=== PATIENT | female | born 1955 | race Caucasian/White ===

== ENCOUNTER 2016-12-30 02:17 | Inpatient (IN) ==
--- NOTE | 2016-12-28 12:32 | EKG Report ---
Test Performed on : 12/28/2016 10:59:51 AM Test Reason : PAT Blood Pressure : / mmHG Vent. Rate : 056 BPM Atrial Rate : 056 BPM P-R Int : 152 ms QRS Dur : 092 ms QT Int : 472 ms P-R-T Axes : 060 033 041 degrees QTc Int : 455 ms Sinus bradycardia. Otherwise normal ECG No previous ECGs available Confirmed by Narcisa Painting MD ([id number]) on 12/29/2016 12:27:08 PM
[2016-12-28 12:33] LABS: BILIRUBIN URINE NEGATIVE (NEGATIVE); BLOOD URINE NEGATIVE (NEGATIVE); COLOR YELLOW; GLUCOSE URINE NEGATIVE (NEGATIVE); LEUKOCYTES URINE MODERATE (NEGATIVE); NITRITE URINE NEGATIVE (NEGATIVE); PROTEIN URINE TRACE mg/dL (NEGATIVE); SP GRAVITY URINE 1.029; TURBIDITY URINE CLEAR (CLEAR); URINE MICRO REVIEW NEEDED? NO; URINE SOURCE CLEAN CATCH; UROBILINOGEN URINE 3 mg/dL (NORMAL)
[2016-12-28 12:34] LABS: UR EPITHELIAL CELLS >10 /HPF (<10); URINE BACTERIA 1+ /HPF; URINE RBC <10 /HPF (<10); URINE WBC <10 /HPF (<10)
[2016-12-28 12:37] LABS: BASO% 1.1 % (0.0-0.8); EOS# 0.28 X1000 (0.0-0.7); EOS% 5.2 % (0.0-10.0); HEMATOCRIT 40.3 % (37.0-47.0); HEMOGLOBIN 13.5 g/dL (12.0-16.0); LYMPH# 1.74 X1000 (1.2-3.4); LYMPH% 32.3 % (20.5-51.1); MANUAL DIFF NEEDED? NO; MCH 31.6 PG (27-31); MCHC 33.5 g/dL (33-37); MCV 94.4 FL (81-99); MONO# 0.61 X1000 (0.11-0.59); MONO% 11.3 % (1.7-9.3); MPV 10.4 FL (7.4-10.4); NEUT% 50.1 % (42.2-75.2); PLT 230 X1000 (130-400); RBC 4.27 XMIL (4.2-5.4)
[2016-12-28 12:46] LABS: INR 1.04
[2016-12-28 13:02] LABS: AGAP 10; BUN 13 mg/dL (8-22); CALCIUM 8.9 mg/dL (8.8-10.2); CHLORIDE 102 mmol/L (98-107); COSMO 285; POTASSIUM 4.1 mmol/L (3.5-5.1); SODIUM 143 mmol/L (136-145); TCO2 31 mmol/L (25-35)
[2016-12-30] MEDS ORDERED: VANCOMYCIN 1 GM/NS 1 GM/250 ML IVPB ONE (05:34)
[2016-12-30] MEDS ORDERED: COLACE ONE (05:34)
[2016-12-30] MEDS ORDERED: REGLAN ONE (05:34)
[2016-12-30] MEDS ORDERED: CELEBREX ONE (05:34)
[2016-12-30] MEDS ORDERED: PEPCID ONE (05:34)
[2016-12-30] MEDS ORDERED: LYRICA ONE (05:34)
[2016-12-30] MEDS ORDERED: LR 1,000 ML ONE (05:35)
[2016-12-30] MEDS ORDERED: DIPRIVAN 1% 1,000 MG/100 ML BOTTLE ONE (06:21)
[2016-12-30] MEDS ORDERED: VERSED ONE (06:25)
[2016-12-30] MEDS ORDERED: FENTANYL ONE (06:26)
[2016-12-30] MEDS ORDERED: DURAMORPH ONE (06:38)
[2016-12-30] MEDS ORDERED: EXPAREL 1.3% ONE (06:39)
[2016-12-30] MEDS ORDERED: VANCOMYCIN ONE (06:39)
[2016-12-30] MEDS ORDERED: SENSORCAINE 0.25%/EPI 1:200,000 ONE (06:39)
[2016-12-30] MEDS ORDERED: TORADOL ONE (06:39)
[2016-12-30] MEDS ORDERED: NEOSPORIN G.U. IRRIGANT ONE (06:39)
[2016-12-30] MEDS ORDERED: CYKLOKAPRON 1,000 MG/NS 1,000 MG/100 ML IVPB ONE ×2 (06:39→06:40)
[2016-12-30] MEDS ORDERED: SODIUM CHLORIDE 0.9% ONE (06:39)
[2016-12-30] MEDS ORDERED: DECADRON ONE (07:38)
[2016-12-30] MEDS ORDERED: SODIUM CHLORIDE 0.9% 10 ML ONE (07:38)
[2016-12-30] MEDS ORDERED: OFIRMEV 1000 MG/ISOTONIC SOLN 1,000 MG/100 ML BOTTLE ONE (07:38)
[2016-12-30] MEDS ORDERED: ZOFRAN ONE (07:38)
[2016-12-30] MEDS ORDERED: NEO-SYNEPHRINE ONE (07:55)
[2016-12-30 08:00] LABS: URINE MICRO REVIEW NEEDED? NO; URINE SOURCE CATH
[2016-12-30 08:05] LABS: BILIRUBIN URINE NEGATIVE (NEGATIVE); BLOOD URINE NEGATIVE (NEGATIVE); COLOR YELLOW; GLUCOSE URINE NEGATIVE (NEGATIVE); LEUKOCYTES URINE NEGATIVE (NEGATIVE); NITRITE URINE NEGATIVE (NEGATIVE); PROTEIN URINE NEGATIVE (NEGATIVE); SP GRAVITY URINE 1.023; TURBIDITY URINE CLEAR (CLEAR); UROBILINOGEN URINE NORMAL (NORMAL)
[2016-12-30 08:07] LABS: UR EPITHELIAL CELLS <10 /HPF (<10); URINE BACTERIA NEGATIVE /HPF; URINE RBC <10 /HPF (<10); URINE WBC <10 /HPF (<10)
[2016-12-30] MEDS ORDERED: DIPRIVAN 1% ONE (08:50)
[2016-12-30] MEDS: MORPHINE ONE ×6 (09:41→10:23)
[2016-12-30] MEDS ORDERED: NS 1,000 ML ONE (09:41)
--- NOTE | 2016-12-30 10:01 | Diag Imaging Result Doc PS360 ---
EXAM: KNEE 1-2 VIEWS-LEFT HISTORY: post knee replacement TECHNIQUE: Portable left knee two views at 0945 COMMENT: There is a total knee arthroplasty. There appears to be appropriate alignment. IMPRESSION: Postsurgical changes. Electronically signed by Goldy Wheeler 12/30/2016 9:59 AM
[2016-12-30] MEDS ORDERED: ZOFRAN PO PRN (11:32)
[2016-12-30] MEDS ORDERED: MILK OF MAGNESIA PO PRN (11:33)
[2016-12-30] MEDS: MORPHINE IV PRN (11:44)
[2016-12-30] MEDS: ZIAC 10/6.25 MG PO SCH (12:28)
[2016-12-30] MEDS: LIPITOR PO SCH (12:28)
[2016-12-30] MEDS: PRISTIQ ER PO SCH (12:29)
[2016-12-30] MEDS: SYNTHROID PO SCH (12:29)
[2016-12-30] MEDS: TYLENOL PO SCH ×2 (14:44→21:10)
[2016-12-30] MEDS: OXY IR PO PRN ×3 (14:45→21:12)
[2016-12-30] MEDS: NS 1,000 ML IV SCH (14:47)
[2016-12-30] MEDS ORDERED: VANCOMYCIN 1 GM/NS 1 GM/250 ML IVPB IV ONE (18:00)
[2016-12-30] MEDS: COLACE PO SCH (21:11)
[2016-12-30] MEDS: PERIDEX MT SCH (21:12)
[2016-12-31] MEDS: MORPHINE IV PRN ×3 (00:01→10:41)
[2016-12-31] MEDS: NS 1,000 ML IV SCH (00:20)
[2016-12-31] MEDS: OXY IR PO PRN ×4 (00:57→11:26)
--- NOTE | 2016-12-31 02:40 | OPERATIVE NOTE ---
PROCEDURE DATE: 12/30/2016 PREOPERATIVE DIAGNOSIS: Degenerative osteoarthritis of the left knee. POSTOPERATIVE DIAGNOSIS: Degenerative osteoarthritis of the left knee. PROCEDURE: Left total knee arthroplasty with DePuy Attune size 5 posterior stabilized femur, size 4 tibial base plate, a 10 mm rotating platform tibial insert, and a 32 mm medialized anatomic patella. SURGEON: Dr. Milton Ibarra. STEAM PRESSURE CHAMBER OPERATOR: ANA M Oneal. SECOND BUSHEL WORKER: Viktor Thompson RN. ANESTHESIA: Spinal. INTRAVENOUS FLUIDS: 1700 mL lactated Ringer. ESTIMATED BLOOD LOSS: 20 mL. TOURNIQUET TIME: 100 minutes at 350 mmHg. COMPLICATIONS: None. INDICATION: The patient is a pleasant 61-year-old female with a chronic history of worsening pain ascribed to the left knee. Continued pain and discomfort despite appropriate nonoperative treatment. X-rays revealed degenerative osteoarthritis. Recommendation to proceed with a left total knee arthroplasty was offered. Risks and benefits of surgery were explained, including the risks of anesthesia, , bleeding, infection, failure to relieve pain, postoperative stiffness, nerve injury, blood clots, and other imponderables. All questions were answered. The patient wished to proceed with surgery. DETAILS OF OPERATION: The patient was taken to the operating room, underwent spinal anesthesia. After adequate anesthesia was obtained, the patient's left lower extremity was placed supine on the operating table. The left lower extremity was subsequently prepped and draped in usual sterile fashion. An Esmarch was used to exsanguinate the left lower extremity. The tourniquet was inflated to 350 mmHg. A standard anterior incision was made with a skin knife. Medial and lateral skin envelopes were developed. Standard medial parapatellar arthrotomy was then performed. Patella fat pad was then excised. Retractor was then placed. Approximately 1 cm anterior to the PCL insertion, starting reamer was passed. This was followed by an intramedullary guide, and a distal femoral cutting block was pinned in position. Distal femoral cut was then performed in standard fashion. A sizing block was placed and measured size 5. Corresponding pins were placed. A size 5 cutting block was then placed in position. Anterior, posterior, and chamfer cuts were then made. Attention then turned to the proximal tibia. Further resection of the ACL and PCL was performed. The extramedullary guide was then used to place the proximal tibia cutting block. This was pinned in position. Had good alignment, confirmed with the alignment gutierrez. The proximal tibia was then resected. Further resecting, the medial and lateral meniscus was excised. A curved osteotome was used to remove the posterior osteophytes off the distal femur. A spacer block was placed and had good soft tissue balance in both flexion and extension. Attention then turned back to the proximal tibia, where a size 4 tibial tray appeared to be correct size. This was pinned in position. This was followed by a central reamer and a fin punch. Attention then turned to the distal femur, where a box cutting guide was pinned in position. A box cut was then performed. A trial size 5 femoral component was then placed. Two lug holes were drilled. A soft tibial insert was then placed, and good soft tissue balance. The patella was everted and resected in standard fashion. A size 32 appeared to be correct size. Corresponding holes were drilled. A size 32 mm medialized anatomic patella trial was then placed, and good patellofemoral tracking. The trial components were then removed. Copious irrigation was then performed with antibiotic pulsatile lavage, while vancomycin was mixed with cement on the back table. Sequential cementing was then performed, first with the tibial tray and excess cement was removed with a Providence, followed by the femoral component. Excess cement was removed with a Providence. A trial tibial insert was then placed, and axial loading and full extension was maintained while the cement cured. The patella cemented in standard fashion as well. A patella clamp was placed. While the cement was curing, Exparel was placed in the soft tissue, as well as subcutaneous tissue. After the cement had cured, peripheral cement was removed with a small osteotome. Trial tibial insert 10 mm appeared the correct size for the tibial insert. The trial component insert was removed. Exparel was placed in the deep posterior capsule. Copious irrigation performed once again with antibiotic pulsatile lavage, followed by a 10 mm rotating platform tibial insert. The patient had good range of motion, good soft tissue balancing, and good patella tracking. A Hemovac drain was placed. This was not sewn in. Copious irrigation then performed once again with antibiotic pulsatile lavage. Number 1 Vicryl was then used to repair the arthrotomy, followed by 2-0 Vicryl for subcutaneous tissue and skin mason. Adaptic, sterile 4 x 4, Webril, cryo unit, Immanuel wrap was applied to the left lower extremity. Patient tolerated the procedure well, with no complications. She was transferred the recovery room in stable condition. cc: Milton Ibarra MD
[2016-12-31] MEDS: TYLENOL PO SCH ×2 (05:27→05:40)
[2016-12-31 05:44] LABS: HEMATOCRIT 34.2 % (37.0-47.0); HEMOGLOBIN 11.5 g/dL (12.0-16.0)
[2016-12-31] MEDS ORDERED: XARELTO PO SCH (06:00)
[2016-12-31 06:03] LABS: AGAP 11; BUN 13 mg/dL (8-22); CALCIUM 8.4 mg/dL (8.8-10.2); CHLORIDE 104 mmol/L (98-107); COSMO 284; POTASSIUM 4.1 mmol/L (3.5-5.1); SODIUM 141 mmol/L (136-145); TCO2 26 mmol/L (25-35)
[2016-12-31] MEDS: SYNTHROID PO SCH (08:10)
[2016-12-31] MEDS: ZIAC 10/6.25 MG PO SCH (08:11)
[2016-12-31] MEDS: PERIDEX MT SCH (08:11)
[2016-12-31] MEDS: LIPITOR PO SCH (08:11)
[2016-12-31] MEDS: PRISTIQ ER PO SCH (08:11)
[2016-12-31] MEDS: COLACE PO SCH (08:11)
[2016-12-31 08:16] VITALS: BP 122/52
[2016-12-31] MEDS ORDERED: PEPCID PO SCH (09:00)
--- NOTE | 2016-12-31 10:56 | PROGRESS NOTE ---
DATE: 12/31/2016 SUBJECTIVE: Patient is a pleasant, 61-year-old female who is 1 day status post left total knee arthroplasty. She is currently resting comfortably and has no complaints. OBJECTIVE: Physical Examination: Dressing is intact. Calf is soft. She is neurovascularly distally. She has active dorsiflexion and plantarflexion. Laboratory Data: Patient's hemoglobin is 11.5 and hematocrit is 34.2. IMPRESSIONS: Postoperative day #1, status post left total knee arthroplasty. PLAN: At this point, I discontinued her drain and Soler, and changed her dressing. We will Hep- Lock her IV as well this morning. We will plan on discharging home after physical therapy. Patient will receive home physical therapy. She will follow up in the office on 01/12/2017. cc: Milton Ibarra MD
[2017-01-05] MEDS ORDERED: FOSAMAX PO SCH (06:39)
== END 2016-12-31 12:08 | disposition home health service (06) ==
LOC: SURHOLD 02:17 → 4N 07:49
PROVIDERS: ADMIT Orthopaedic Surgery Adult Reconstructive Orthopaedic Surgery; ATTEND Orthopaedic Surgery Adult Reconstructive Orthopaedic Surgery